=== PATIENT | male | born 2005 | race Caucasian/White ===

== ENCOUNTER 2025-05-20 20:11 | Emergency (ER) | payer BC, SELFPAY ==
[2025-05-20 20:14] VITALS: BP 136/93
[2025-05-20 20:41] LABS: Hematocrit 45.7 % (39.0-52.0); Hemoglobin 16.1 g/dL (13.0-18.0); Mean Corp Hgb Conc. 35.2 g/dL (33.0-37.0); Mean Corpuscular Volume 82.9 fL (80.0-94.0); Nucleated Red Blood Cells % 0 % (-); Platelet Count 271 10^3/uL (130-400); Red Cell Dist. Width 12.3 % (11.5-14.5)
[2025-05-20 20:57] LABS: ALT (SGPT) 49 U/L (0-50); AST (SGOT) 31 U/L (17-59); Albumin 5.3 g/dl (3.5-5.0); Alkaline Phosphatase 98 U/L (38-126); Blood Urea Nitrogen 18 mg/dl (9-20); COVID-19 Antigen Negative (Negative); Calcium 9.9 mg/dl (8.4-10.2); Carbon Dioxide 17 mmol/L (22-30); Chloride 102 mmol/L (98-107); Glucose 123 mg/dl (70-99); Potassium 4.1 mmol/L (3.5-5.1); Sodium 135 mmol/L (135-145); Total Protein 8.6 g/dl (6.3-8.2); eGFR > 60.00
[2025-05-20 22:08] VITALS: BP 116/85
[2025-05-20 22:10] LABS: Glucose - Point of Care 115 mg/dl (70-99)
[2025-05-20 22:12] VITALS: BP 131/87
[2025-05-20] MEDS: TYLENOL 1000 MG PO (22:31)
[2025-05-20] MEDS: TORADOL 15 MG IV (22:31)
[2025-05-20 22:40] VITALS: BMI 26.1
[2025-05-20 23:00] VITALS: BP 126/80
[2025-05-20] MEDS: NSS 1000 IV (23:27)
[2025-05-21] VITALS: BP 117/71
[2025-05-21 00:17] LABS: Urine Character Clear (Clear)
[2025-05-21 01:00] VITALS: BP 105/63
--- NOTE | 2025-05-21 01:16 | ED.GENMED ---
History of Present Illness
General
Chief Complaint: Abdominal Symptoms
Source: patient
Exam Limitations: none
Time Seen by Provider: 05/20/25 22:01
History of Present Illness
History of Present Illness:
Note:
CHIEF COMPLAINT(S)
- Acute lower back pain
- Nausea and episodes of vomiting
HISTORY OF PRESENT ILLNESS
The patient is a 20-year-old male presenting with a sudden onset of severe lower back pain beginning 30 minutes prior to the presentation. He describes the pain as noticeable and primarily centered in the lower back. The patient reported that the
pain was brought on by an episode of vomiting and attributed the discomfort to muscle strain from retching. He noted difficulty breathing due to the severity of the back pain, which sometimes radiates to the mid-back.
Additionally, the patient experienced nausea earlier, but this has since improved. He reported tingling in his hands and feet along with an inability to move his fingers comfortably. The patients breathing has been rapid since the morning, leading
to carpal pedal spasm. He explicitly stated that lying down, sitting up, or moving in general aggravates the pain. He mentioned mild abdominal tenderness upon pressure, but no chest pain or significant upper abdominal pain.
The patient has not been working for a week and a half, having done construction work previously. Reports of feeling warm were noted, although he did not have any recent fever. His vital assessment by the nurse recorded a temperature of 99.4�F.
ADDITIONAL HISTORY OBTAINED FROM SOURCES OTHER THAN THE PATIENT
According to EMS, the patient exhibited no midline spinal tenderness and was mildly tachycardic at 107 beats per minute. There was no respiratory distress, and his bowel sounds were normal.
EXTERNAL RECORDS REVIEWED
The patients labs were reviewed showing elevated white blood cell count, common in response to vomiting.
SOCIAL DETERMINANTS AFFECTING HEALTH
The patient reported occasional alcohol consumption but denied any smoking or drug use.
MEDICATIONS
No current medications.
PHYSICAL EXAM
General: Alert, no acute distress.
Skin: Warm and dry, no signs of rash or jaundice.
Head: Normocephalic, atraumatic.
Neck: Supple, trachea midline.
Eye, Ears, Nose, Mouth, and Throat: Oral mucosa is moist.
Cardiovascular: Tachycardic at 107 beats per minute, normal peripheral perfusion. Heart regular no murmur
Respiratory: Respiration non-labored, no respiratory distress.
Gastrointestinal: Mild tenderness to the suprapubic region but McBurney's point nontender, no peritoneal findings, normal bowel sounds, nondistended.
Back: Some tenderness particularly in the lower back, medial with no significant midline tenderness.
Musculoskeletal: No focal motor deficits, normal muscle tone.
Neurological: Alert and oriented, no focal neurological deficits observed.
Psychiatric: Cooperative, appropriate mood and affect.
PROBLEM LIST
Acute Problems:
- Lower back pain
- Nausea and vomiting
- Carpal pedal spasm
PLAN
- Administer oral anti-inflammatory medication to relieve back pain.
- Administer IV fluids for hydration.
- Collect a urine sample for analysis to rule out potential renal involvement or kidney stones.
- Monitor for any recurrence of nausea and administer anti-emetics if necessary.
- Reassess laboratory and urine findings to determine the necessity of further imaging studies.
- Micro Paleontologist the patient to avoid strenuous activities and update on follow-up care as necessary.
DIFFERENTIAL DIAGNOSIS
The Differential Diagnosis includes, in no particular order and is not limited to:
- Muscular strain due to vomiting
- Kidney stones
- Urinary tract infection
- Gastroenteritis
- Spinal cord injury or intervertebral disc herniation
- Pyelonephritis
- Pancreatitis
- Acute abdomen
- Electrolyte imbalance
- Anxiety-related hyperventilation and subsequent carpal pedal spasm
Disposition:
SUMMARY OF ENCOUNTER
The patient, a 20-year-old male, was seen in the emergency department for severe lower back pain that developed after an episode of vomiting. Upon assessment, he had a temperature of 99.4�F. Lab results showed an elevated white blood cell count of
19,000, likely due to stress from vomiting and slight dehydration. A portable metabolic panel indicated mild metabolic acidosis, and urinalysis showed 2+ ketones but was negative for nitrites and blood. The patient was managed with intravenous
fluids, acetaminophen, and ketorolac. His symptoms markedly improved, with vital signs stabilizing, including a repeat temperature of 98.1�F. Although there was consideration for CT imaging due to initial symptoms, this was deferred given the
improvement observed with supportive treatment alone.
DISPOSITION
Discharge
ASSESSMENT
The patients acute lower back pain is likely due to muscular strain from vomiting, exacerbated by dehydration and hyperventilation. Other possible underlying processes such as renal pathology or pancreatitis were considered but deemed unlikely given
the rapid symptom resolution.
EMERGENCY TREATMENTS ADMINISTERED
Intravenous fluids, acetaminophen, and ketorolac (Toradol) were administered.
PLAN
Discharge the patient with instructions to monitor symptoms over the next 12 to 24 hours. Advise immediate return to the emergency department if symptoms worsen or regress.
INDEPENDENT REVIEW OF LABS AND INTERPRETATION OF TESTS
My independent review of the CBC indicates leukocytosis with a white blood cell count of 19,000, likely due to stress response from vomiting. Review of the CMP indicates mild metabolic acidosis. Urinalysis shows 2+ ketones, negative for nitrites and
blood.
ADDITIONAL TESTING AND IMAGING CONSIDERED
CT imaging was considered to evaluate for any internal abnormalities contributing to the back pain, however, it was decided against due to the resolution and improvement of symptoms after treatment.
PATIENT EDUCATION AND COUNSELING
The patient was counseled on the possibility of symptoms returning and to seek medical attention if they experience any worsening conditions. They were informed about the role of dehydration and stress in contributing to the current presentation.
MEDICATION RECONCILIATION
Ketorolac (Toradol) was administered in the emergency department. No home medications were continued or started.
MEDICAL DECISION MAKING
- Number and Complexity of Problems Addressed: Acute conditions include lower back pain, nausea, vomiting, and carpal pedal spasm. Possible differential diagnoses considered included muscular strain, electrolyte imbalance, and anxiety-related
hyperventilation.
- Data:
- Category 1: External records reviewed include the patients previous labs showing an elevated white blood cell count due to vomiting. Clinical information obtained from EMS reports confirmed mild tachycardia and lack of respiratory distress.
- Category 2: Imaging was considered but not ordered due to the patients significant improvement with supportive care.
- Risk: Consideration of admission or escalation was discussed due to the complexity of symptoms and initial assessment, but ultimately deferred due to the patients marked improvement.
DIAGNOSIS
- Muscular strain due to vomiting (ICD-10: S39.012A)
- Dehydration (ICD-10: E86.0)
- Hyperventilation leading to carpal pedal spasm (ICD-10: R06.4)
Phy Exam
Physical Exam
Physical Exam:
.
Sepsis
Sepsis Screening
Sepsis Assessment: Sepsis Ruled Out
Sepsis Screen
Sepsis Screen: Sepsis Ruled Out
Date: 05/21/25
Time: 06:54
Course
Orders/Labs/Results
Orders:
Orders
05/20/25 20:25
COVID-19 Antigen Urgent
Source: Nasal Swab
Complete Blood Count/With Diff Urgent
Comprehensive Metabolic Panel Urgent
Influenza A+B Rapid Molecular Urgent
BRENDA Source: Nasal Swab
Specimen Description:
05/20/25 22:25
Acetaminophen [Tylenol] 1,000 mg PO NOW STA
Ketorolac [Toradol] 15 mg IV NOW STA
05/20/25 23:26
0.9% Sodium Chloride 1000 ml [Nss] 1,000 ml IV BOLUS
05/20/25 23:56
Urinalysis Reflex To Culture Urgent
Date Specimen was Collected: 05/20/25
Time Specimen was Collected: 23:52
Urine Microscopic Reflex Cult Urgent
Abnormal Lab Results
05/20/25 05/20/25 05/20/25
20:25 22:10 23:56
WBC 19.0 H 10^3/uL
(4.8-10.8)
MPV 11.4 H fL
(7.4-10.4)
Abs Immat Gran (auto) 0.1 H 10^3/uL
(0-0.05)
Absolute Neuts (auto) 17.7 H 10^3/uL
(1.4-6.5)
Absolute Lymphs (auto) 0.3 L 10^3/uL
(1.2-3.4)
Absolute Monos (auto) 0.8 H 10^3/uL
(0.1-0.6)
Neutrophils % 93.0 H %
(42.2-75.2)
Lymphocytes % 1.7 L %
(20.5-51.1)
Carbon Dioxide 17 L mmol/L
(22-30)
Glucose 123 H mg/dl
(70-99)
Total Bilirubin 2.0 H mg/dl
(0.2-1.3)
Total Protein 8.6 H g/dl
(6.3-8.2)
Albumin 5.3 H g/dl
(3.5-5.0)
Urine Ketones 2+ A
(Negative)
Urine Bacteria (Reflex) Few A
(Negative)
Urine Albumin (Reflex) 2+ A
(Neg - Trace)
POC Glucose 115 H mg/dl
(70-99)
05/20/25 20:25
05/20/25 20:25
Vital Signs
Initial and Last Documented VS:
Initial Vital Signs
Temp Pulse Resp BP Pulse Ox
98 F 123 18 136/93 95
05/20/25 20:14 05/20/25 20:14 05/20/25 20:14 05/20/25 20:14 05/20/25 20:14
Last Documented Vital Signs
Temp Pulse Resp BP Pulse Ox
99.4 F 99 17 105/63 97
05/20/25 22:52 05/21/25 01:15 05/21/25 01:15 05/21/25 01:00 05/21/25 01:20
*Pulse Oximetry
SaO2: 97
Oxygen Mode of Delivery: Room air
Patient hypoxic: no
*Critical Care Note
Total Time (30-74mins, 75-104mins- exclusive of procedures): Not Applicable
ED Attending Note
-
Portions of this chart may have been created with voice recognition software.� Occasional wrong word or��sound alike� substitutions may have occurred due to the inherent limitations of voice recognition software.
Discharge Plan
Departure
Patient Disposition: Home (Routine Discharge)
Date of Disposition: 05/21/25
Time of Disposition: 01:21
Patient with high blood pressure during this ER visit?: No
Discharge Problem:
Vomiting
Instructions: Clear Liquid Diet, Nausea and Vomiting, Adult (DC)
Prescriptions:
New
ondansetron HCl 4 mg tablet
4 mg PO Q8H PRN (Reason: nausea and vomiting) Qty: 14 0RF
Referrals:
NONE,* [Family Provider, Internal Medicine]
Activity Restrictions/Additional Instructions:
Please drink plenty fluids and advance diet slowly as discussed. Return immediately for worsening pain, abdominal pain, intractable vomiting or any other concerns.
Interventions
Interventions:
*General Assessment Last Done: 05/20/25 20:14
*Neglect/Abuse Screening Last Done: 05/20/25 20:14
*ED COVID-19 Vaccine History Last Done: 05/20/25 23:28
*ED Influenza Vaccine History Last Done: 05/20/25 23:28
[facility] Risk Assessment Tool Last Done: 05/20/25 23:28
*Risk Screen - Suicide (C-SSRS) Last Done: 05/20/25 20:14
*Nursing Disposition Last Done: 05/21/25 01:36
MO-[id number]-[id number] Assessment Last Done: 05/20/25 23:00
Discharge Date and Time
Discharge Date/Time: 05/21/25 01:36
Print Language: JAPANESE
[2025-05-21 01:25] LABS: Urine Red Blood Cell 0-2 /HPF (0-2); Urine Squamous Cell 0-2 /LPF (Few)
== END 2025-05-21 01:36 | disposition home or self-care (01) ==
LOC: EMR 20:11
PROVIDERS: Emergency Medicine; EMERGENCY PHYSICIAN Emergency Medicine
DX: M54.50 Low back pain, unspecified (principal); S39.012A Strain of muscle, fascia and tendon of lower back, initial encounter; R11.10 Vomiting, unspecified; X58.XXXA Exposure to other specified factors, initial encounter; Z11.52 Encounter for screening for COVID-19; E87.20 Acidosis, unspecified; E86.0 Dehydration; R06.4 Hyperventilation; R20.2 Paresthesia of skin; R10.819 Abdominal tenderness, unspecified site; R00.0 Tachycardia, unspecified
CPT/HCPCS: 99284; 96374; 96361; 80053; 81003; 81015; 82962; 85025; 87502; 87811